=== PATIENT | male | born 1950 | race African-American/Black ===

== ENCOUNTER 2022-05-10 19:30 | Outpatient (CLI) | payer MEDICARE, BC | END 2022-05-10 19:31 | disposition home or self-care (01) | LOC: SLEEPLAB 19:30 | PROVIDERS: ATTEND Internal Medicine Critical Care Medicine | DX: G47.33 Obstructive sleep apnea (adult) (pediatric) (principal); R06.83 Snoring; G47.31 Primary central sleep apnea; G47.10 Hypersomnia, unspecified; I10 Essential (primary) hypertension; G47.00 Insomnia, unspecified; I48.91 Unspecified atrial fibrillation | CPT/HCPCS: 95811 ==